=== PATIENT | male | born 1930 | race Caucasian/White ===

== ENCOUNTER 2016-10-30 09:15 | Emergency (ER) | payer MEDICARE, BC ==
--- NOTE | 2016-10-30 10:20 | ED ---
Back Pain - HPI Summary HPI Summary: 86 yr old male with the complaint of low back pain. Onset of symptoms was 3 days ago. The patient has pain in the low back that radiates into the right buttock area. He states the pain is 5/10, worse with standing, and worse with movement. The patient fell a couple of weeks ago. - History of Current Complaint Chief Complaint: UCBackPain Stated Complaint: LOWER BACK PAIN Time Seen by Provider: 10/30/16 10:05 - Allergies/Home Medications Allergies/Adverse Reactions: Allergies Allergy/AdvReac Type Severity Reaction Status Date / Time No Known Allergies Allergy Verified 10/30/16 09:48 Home Medications: Home Medications Aspirin EC Low Dose* [Ecotrin EC Low Dose 81 MG*] 81 mg PO DAILY 10/30/16 [ History Confirmed 10/30/16] Finasteride TAB* [Proscar TAB*] 5 mg PO DAILY 10/30/16 [History Confirmed ] Magnesium Hydroxide LIQ* [Milk of Magnelie LIQ*] 1 liq 1900 10/30/16 [History Confirmed 10/30/16] Omeprazole CAP* [Prilosec CAP* 20 MG] 20 mg PO DAILY 10/30/16 [History Confirmed 10/30/16] Venlafaxine EXT RELEASE CAP* [Effexor Xr CAP*] 75 mg PO DAILY 10/30/16 [History Confirmed 10/30/16] PMH/Surg Hx/FS Hx/Imm Hx Previously Healthy: Yes - Surgical History Surgery Procedure, Year, and Place: 2012 LEFT hip. 2016 RIGHT knee - Immunization History Immunizations Up to Date: Yes Infectious Disease History: No Infectious Disease History: Denies: Traveled Outside the [place] in Last 30 Days - Family History Known Family History: Positive: None - Social History Lives: With Family Alcohol Use: Occasionally Substance Use Type: Reports: None Smoking Status (MU): Never Smoked Tobacco Review of Systems Constitutional: Negative Positive: Other - back pain All Other Systems Reviewed And Are Negative: Yes Physical Exam Triage Information Reviewed: Yes Vital Signs On Initial Exam: Initial Vitals Temp Pulse Resp BP Pulse Ox 98.5 F 69 22 158/64 98 10/30/16 09:50 10/30/16 09:50 10/30/16 09:50 10/30/16 09:50 10/30/16 09:50 Vital Signs Reviewed: Yes Appearance: Positive: Well-Appearing, No Pain Distress Skin: Positive: Warm Head/Face: Positive: Normal Head/Face Inspection Eyes: Positive: EOMI Neck: Positive: Nontender Respiratory/Lung Sounds: Positive: Clear to Auscultation, Breath Sounds Present Cardiovascular: Positive: RRR. Negative: Murmur Abdomen Description: Positive: Nontender Musculoskeletal: Positive: Strength/ROM Intact Neurological: Positive: Normal, Sensory/Motor Intact, Alert, Oriented to Person Place, Time, CN Intact II-III, Normal Gait Psychiatric: Positive: Normal - Roselyn Coma Scale Best Eye Response: 4 - Spontaneous Best Motor Response: 6 - Obeys Commands Best Verbal Response: 5 - Oriented Diagnostics - Vital Signs Vital Signs Temp Pulse Resp BP Pulse Ox 10/30/16 09:50 98.5 F 69 22 158/64 98 - Laboratory Lab Statement: Any lab studies that have been ordered have been reviewed, and results considered in the medical decision making process. - CT abd pelvis CT Interpretation: Positive (See Comments) CT Interpretation Completed By: Radiologist - 15 cm cyst mass right kidney. See report for all other details. Back Pain Course/Dx - Course Course Of Treatment: 86 yr old and son informed of the CT findings with the kidney mass and they will follow up with the primary doctor on Tuesday. His pain is likely musculoskeletal in nature. - Diagnoses Provider Diagnoses: Back pain, Kidney cysts Discharge - Discharge Plan Condition: Good Disposition: HOME Patient Education Materials: Low Back Strain (ED), Hypertension (ED), Kidney Cyst (ED) Referrals: Kristian Walker [Primary Care Provider] - 2 Days Additional Instructions: See your doctor as soon as possible for follow up.
--- NOTE | 2016-10-30 11:28 | RAD ---
INDICATION: RIGHT flank and RIGHT lower quadrant pain for multiple days. COMPARISON: No relevant prior exams available on the [facility] PACS for comparison. TECHNIQUE: Multidetector CT images were obtained from the lung bases to the ischial tuberosities. Evaluation of the viscera is limited without IV contrast. Multiplanar reformation. REPORT: Images through the inferior thorax remarkable for significant motion artifact as well as coronary artery calcifications. Unremarkable unenhanced liver and gallbladder. Mildly atrophic pancreas. Unremarkable spleen. Negative for CT abnormality of the upper GI, small bowel, or appendix. Mild colonic diverticulosis at the sigmoid colon without findings of diverticulitis. Negative for ascites or free air. Small fat-containing umbilical hernia without inflammatory change. Small LEFT fat-containing inguinal hernias without inflammatory change. 15.2 cm exophytic water density simple appearing cyst mid to upper pole RIGHT kidney. Smaller exophytic cortical cyst inferior pole RIGHT kidney. 2 mm nonobstructing upper pole calyceal stone RIGHT kidney. Multiple small water density LEFT renal cortical cysts with dominant 3.3 cm cyst at the midpole. Negative for LEFT nephrolithiasis. Negative for hydronephrosis. Unremarkable ureters. Multiple small stones at the urinary bladder. Coarse calcifications at the prostate. Negative for lymphadenopathy. Atherosclerotic calcification of normal diameter abdominal aorta and iliac arteries. Physiologic distention of the IVC. Polyarticular degenerative arthropathy. Negative for suspicious focal osseous lesions. IMPRESSION: 1. Normal appendix documented. Mild colonic diverticulosis without findings of diverticulitis. 2. Tiny RIGHT renal collecting system stones without obstructive uropathy. 3. Large exophytic cyst at the mid to upper pole of the RIGHT kidney which may result in symptoms due to large size.
[2016-10-30 11:53] VITALS: BP 155/80
== END 2016-10-30 12:40 | disposition home or self-care (01) ==
LOC: UCCORT 09:15
DX: M54.9 Dorsalgia, unspecified (principal); N28.1 Cyst of kidney, acquired; Z79.82 Long term (current) use of aspirin
CPT/HCPCS: 74176; 81003; 99202; G0463